=== PATIENT | male | born 1955 | race Caucasian/White ===

== ENCOUNTER → 2019-01-15 | Outpatient (CLI) | payer MEDICARE, OTHER, SELFPAY ==
--- NOTE | 2019-01-15 12:44 | RAD_ITS ---
STUDY: SWALLOWING STUDY REASON FOR EXAM: Male, 63 years old. Dysphagia. TECHNIQUE: The examination was performed with Speech Pathology in attendance. Under fluoroscopic observation, the patient ingested thin barium, thick barium, barium pudding, and barium coated cracker. FLUOROSCOPY TIME: 1:03 minutes/seconds. 1018 images were obtained. RADIOLOGIST INVOLVEMENT: Radiologist was present and providing direct supervision. COMPARISON: None. FINDINGS: The following was observed during swallowing of the various mixtures of barium: Thin Barium: Transient penetration with ejection upon ingestion of thin liquids. Barium Pudding: There was no evidence of aspiration or laryngeal penetration. Barium Coated Cracker: There was no evidence of aspiration or laryngeal penetration. RAD/Swallowing Function w/Video IMPRESSION: Transient penetration with ejection upon ingestion of thin liquids. The swallow study findings were discussed with the patient by the speech pathologist at the conclusion of the examination. Please see speech pathology report for more information and recommendations. Electronically Signed: Brian Bull, at 13:43 EDT , Service support ,
--- NOTE | 2019-01-15 13:00 | SP.MBSS_ITS ---
PRIMARY / SECONDARY DIAGNOSIS: dysphagia (R13.10) REFERRING PHYSICIAN: Dr. Sergei Mckeon MD CURRENT DIET: regular textures, thin liquids DENTITION: natural, multiple missing MENTAL STATUS: WNL RESPIRATORY STATUS: O2 via room air REASON FOR REFERRAL: The Patient is a 63 year old male referred for a modified barium swallow (MBS) study to objectively assess the Patients oropharyngeal swallow function under fluoroscopy secondary to reported dysphagia primarily with solid textures, with intermittent post prandial globus sensation and occasional eructation. MEDICAL HISTORY: Hypercholesteremia; no further medical history reported. PREVIOUS MODIFIED BARIUM SWALLOW STUDY: None. ASSESSMENT PARAMETERS: The Patient participated in a Modified Barium Swallow (MBS) study on 01/15/2019. Dr. Bull was the radiologist present for this evaluation. This study was recorded in the lateral view and images were sent to PACs for storage. Scoring was completed through each trial using the 8-point Penetration-Aspiration Scale (PAS), and summarized via the Modified Barium Swallow Impairment Profile (MBSImP) and the Bolus Residue Scale (BRS), with severity scoring through the Dysphagia Severity Rating Scale (DSRS) and Swallowing Performance Scale (SPS), and recommended diet textures through the International Dysphagia Diet Standardisation Initiative (IDDSI). RESULTS OF THE EVALUATION: The Patient presents with oropharyngeal swallow function grossly within functional limits (DSRS: 1; SPS: 2) OBJECTIVE ASSESSMENT OF SWALLOW FUNCTION (QUANTITATIVE ? PER TRIAL): PENETRATION / ASPIRATION SCALE (RAMSEY): 1 = does not enter airway 2 = enters airway/above vocal folds/ejected 3 = enters airway/above vocal folds/not ejected 4 = enters airway/contacts vocal folds/ejected 5 = enters airway/contacts vocal folds/not ejected 6 = enters airway/below vocal folds/ejected 7 = enters airway/below vocal folds/not ejected despite effort 8 = enters airway/below vocal folds/no effort PENETRATION / ASPIRATION SCALE (SCORE): Thin liquid - 5 mL tsp.: 1 Thin liquids via cup (single sip): 2 Thin liquids via cup (single sip): 2 Thin liquids via cup (single sip): 2 Pudding via spoon: 1 Regular textured cookie: 1 Thin liquids via straw (sequential swallows): 2 OBJECTIVE ASSESSMENT OF SWALLOW FUNCTION (QUANTITATIVE ? AGGREGATE): MODIFIED BARIUM SWALLOW IMPAIRMENT PROFILE (MBSImP) LABIAL SEAL: 0 (of 4) no labial escape TONGUE CONTROL: 0 (of 3) cohesive bolus BOLUS PREPARATION / MASTICATION: 0 (of 3) timely and efficient BOLUS TRANSPORT / LINGUAL MOTION: 0 (of 4) brisk tongue motion ORAL RESIDUE: 2 (of 4) residue collection on oral structures INITIATION OF PHARYNGEAL SWALLOW: 3 (of 4) pyriforms SOFT PALATE ELEVATION: 0 (of 4) no bolus between soft palate & pharyngeal wall LARYNGEAL ELEVATION: 1 (of 3) partial superior movement / approximation ANTERIOR HYOID EXCURSION: 1 (of 2) partial movement EPIGLOTTIC MOVEMENT: 0 (of 2) complete inversion LARYNGEAL VESTIBULE CLOSURE: 1 (of 2) incomplete closure PHARYNGEAL STRIPPING WAVE: 0 (of 2) present / complete PE SEGMENT OPENIN (of 3) partial distension / duration / obstruction TONGUE BASE RETRACTION: 1 (of 4) trace column of contrast PHARYNGEAL RESIDUE: 1 (of 4) trace residue ESOPHAGEAL BOLUS CLEARANCE: could not view BOLUS RESIDUE SCALE (BRS): 1 (of 6) no residue DYSPHAGIA SEVERITY RATING SCALE (DSRS): 1 (within functional limits) SWALLOWING PERFORMANCE SCALE (SPS): 2 (WFL) OBJECTIVE ASSESSMENT OF SWALLOW FUNCTION (QUALITATIVE): ORAL PREPARATORY PHASE: sufficient mastication rate and quality; sufficient oral containment; preserved management of breathing / bolus formation without disrupted E ? S ? E pattern ORAL TRANSITIONAL PHASE: no presence of transitional incompetence; no bolus consolidation impairments; no presence of premature posterior bolus loss; PHARYNGEAL PHASE: mild pharyngeal phase dyssynchrony combining with in mild reduction in hyolaryngeal excursion and resulting in intermittent penetration with sufficient / consistent laryngeal vestibule pressure generated to expel penetrated material; no signs of pharyngeal dysmotility; no signs of velopharyngeal impairments; no aspiration throughout trials. ESOPHAGEAL PHASE: no obvious esophageal phase abnormalities observed. 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 RECOMMENDATIONS AND CONSIDERATIONS: The Patient presents with mastication and deglutition abilities found to be grossly within normal limits. Noted pharyngeal phase findings (very mild pharyngeal dyssynchrony) not outside normal limitations with comparison to age matched peers. The Patient was able to comprehend information presented upon review and express recommended intake precautions (reduced bolus volume) to suggest high likelihood of compliance. Provided a brief overview of signs and symptoms of aspiration, with recommendations for the Patient to further discuss any further symptoms with the Patients primary care physician. Would consider further esophageal / gastroesophageal workup / considerations given the above reported symptomology. No further skilled speech-language services warranted at this time targeting dysphagia. DIET TEXTURE RECOMMENDATIONS: Will recommend a regular textured (IDDSI: 7), thin liquid diet (IDDSI: 0) diet RECOMMENDED COMPENSATORY STRATEGIES: Seated upright at 90 degrees during PO intake, remain upright for 30-60 minutes post meal (GERD precaution) IMAGE COUNT: [id number] Wilson Truong M.A., CCC-SURGICAL INSTRUMENT MAKER MBSImP Certified, LSVT Certified [facility] Speech-Language Pathology Department [email or web address]
== END | disposition home or self-care (01) ==
LOC: RAD 12:41
PROVIDERS: Family Provider Family Medicine; PCP Family Medicine; Referring Provider Family Medicine; Visit Provider Family Medicine
DX: R13.10 Dysphagia, unspecified (principal)
CPT/HCPCS: 74230; 92611

== ENCOUNTER → 2025-03-10 | Outpatient (CLI) | payer MEDICARE, SELFPAY ==
--- NOTE | 2025-03-10 07:55 | MRI_ITS ---
PROCEDURE: PELVIS W/WO CONTRAST, 03/10/2025 REASON FOR EXAM: ELEVATED PSA TECHNIQUE: Multisequence multiplanar MRI pelvis was performed with and without IV contrast. IV Contrast: 17 mL Clariscan COMPARISON: None FINDINGS: Variable overall mild motion limitation. Prostate size: 4.9 x 3.2 x 3.9 cm, estimated volume 31.8 mL. Transition zone: PI-RADS 2 findings. Peripheral Zone: Background mild changes of likely prostatitis (PI-RADS 2). Additional lesions as below: *Lesion 1 RIGHT posteromedial peripheral zone midgland, 2.1 cm (series 12, image 14). This extends slightly into the RIGHT posterior base and RIGHT posteromedial apex. *T2 score: 5. *DWI score: 5. *DCE: Positive. *Overall PI-RADS: PI-RADS 5. *Extracapsular extension:No definite extracapsular extension, however, there is capsular abutment well over 1 cm which increases the risk of occult early/microscopic extracapsular extension. Note that this includes the region of the RIGHT neurovascular bundle and anterior rectum without definite invasion although early/microscopic involvement cannot be entirely excluded. Likely this alum are mild cava with 4 hour song Neurovascular bundles: As above. Seminal vesicles: Unremarkable. Bladder: Underdistended and suboptimally evaluated. Trabeculation suggests chronic bladder outlet obstruction. Lymph nodes: Distal bilateral external iliac versus deep inguinal nodes up to 8 mm short axis on the RIGHT and 10 mm short axis on the LEFT. Bones: No destructive or frankly suspicious bony lesions identified. Other: None. MRI/Pelvis W/WO Contrast IMPRESSION: 1. 2.1 cm PI-RADS 5 lesion in the mid RIGHT posteromedial peripheral zone. Thi s extends slightly into the RIGHT posterior base and RIGHT posteromedial apex. 2. No definite extracapsular extension, however, there is capsular abutment wel l over 1 cm which increases the risk of occult early/microscopic extracapsular extension. Note that this includes the region o f the RIGHT neurovascular bundle and anterior rectum without definite invasion although early/microscopic involvement cannot be entirely excluded. 3. Mild LEFT and borderline RIGHT distal bilateral external iliac versus deep i nguinal lymphadenopathy. Given the constellation, this probably warrants close follow-up to evaluate stability. Comparison with any available outside imaging may also be helpful. 4. Additional description as above. Reading Location: [id number]
== END | disposition home or self-care (01) ==
PROVIDERS: Referring Provider Urology; Visit Provider Urology
DX: R97.20 Elevated prostate specific antigen [PSA] (principal)
CPT/HCPCS: 72197; A9575; A4216

== ENCOUNTER → 2025-04-23 | Outpatient (CLI) | payer MEDICARE, SELFPAY ==
--- NOTE | 2025-04-23 08:00 | PROSBIL_PTH ---
PATIENT: SHIELA HERNANDEZ LOC: [facility] U#:[id number] AGE/SX: 69/M ROOM: RE04/23/[address]: Dr. Stanley Moody MD : 1955 BED: DIS: 04/23/2025 SPEC #: [id number] RECD: 04/24/25 11:32 STATUS: TUCKER ARABELLA #: [id number] CLAUDIO: 04/23/25 08:[address]: Stanley Moody DEPT: SURGICAL PATHOLOGY RECD BY: Ron Rachel ENTERED: 04/24/25 11:33 SP TYPE: PROST BX DANIEL DR: Dr. Benny Francis DO Tissues: A - PROSTATE RIGHT B - PROSTATE RIGHT C - PROSTATE RIGHT D - PROSTATE LEFT E - PROSTATE LEFT F - PROSTATE LEFT Procedures: PROSTATE BX Immunohistochemical Stains HEADER OPERATION: Prostate biopsy PRE-OP DIAGNOSIS: Elevated PSA TISSUE SUBMITTED: A - Right apex, B - Right mid, C - Right base, D - Left apex, E - Left mid, F - Left base MICROSCOPIC DIAGNOSIS A. Prostate, right, apex, biopsy: - Adenocarcinoma Grant 3+3=6, one of one core, involving < 5% of the tissue. B. Prostate, right, mid, biopsy: - Adenocarcinoma Grant 3+3=6, one of one core, involving < 5% of the tissue. C. Prostate, right, base, biopsy: - Adenocarcinoma [place] 3+3=6, one of one core, involving 35% of the tissue. D. Prostate, left, apex, biopsy: - Adenocarcinoma [place] 3+3=6, one of one core, involving 10% of the tissue. - PIN4 IHC supports the histologic impression. E. Prostate, left, mid, biopsy: - High grade PIN. F. Prostate, left, base, biopsy: - Focal atypical small acinar proliferation, suspicious for adenocarcinoma. MICROSCOPIC DESCRIPTION Slides are reviewed. ?All matched controls reacted appropriately. These tests were developed and their performance characteristics determined by [facility]. They may not have been cleared or approved by the [place]. Food and Drug Administration. The FDA has determined that such clearance or approval is not necessary.? The above immunohistochemical?markers and/or special stains have been reviewed by the Pathologist. GROSS DESCRIPTION Received in 6 formalin containers labeled with the patient's name and date of . Designated as: A. RA is a sanchez tissue core, 1.9 cm in length by 0.1 cm in diameter. Entirely submitted in 1 cassette. B. RM is a sanchez tissue core, 1.5 cm in length by 0.1 cm in diameter. Entirely submitted in 1 cassette. C. RB is a sanchez tissue core, 1.2 cm in length by 0.1 cm in diameter. Entirely submitted in 1 cassette. D. LA is a sanchez tissue core, 1.3 cm in length by 0.1 cm in diameter. Entirely submitted in 1 cassette. E. LM is a sanchez tissue core, 2.5 cm in length by 0.1 cm in diameter. Entirely submitted in 1 cassette. F. LB is a sanchez tissue core, 1.8 cm in length by 0.1 cm in diameter. Entirely submitted in 1 cassette. PR 04/24/2025 CPT:[id number]
== END | disposition home or self-care (01) ==
LOC: LABSPEC 15:53
PROVIDERS: Referring Provider Urology; Visit Provider Urology
DX: R97.20 Elevated prostate specific antigen [PSA] (principal)
CPT/HCPCS: 88305; 88342; G0416